=== PATIENT | male | born 1965 | race Caucasian/White ===

== ENCOUNTER 2017-06-30 11:23 | Emergency (ER) | payer SELFPAY ==
[2017-06-30 11:34] VITALS: BP 146/86
--- NOTE | 2017-06-30 14:02 | UC ---
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 Bleeding stopped w/ pressure. Pt is UTD w/ Tetanus shot. Pain is 1/10. He is able to move his thumb w/o any difficulty. Pt denies numbness and tingling over the thumb, SOB, chest pain abdominal pain, N/V/D. - History Of Current Complaint Chief Complaint: UCLaceration Stated Complaint: LACERATION RT THUMB Time Seen by Provider: 06/30/17 13:59 Hx Obtained From: Patient Laceration Location: Finger - RT first phalanx Mechanism Of Injury: Sharp Trauma Onset/Duration: Sudden Onset, Lasting Hours - 4hrs Severity: Moderate Pain Intensity: 1 Pain Scale Used: 0-10 Numeric Aggravating Factors: Movement Related History: Occupational Injury, Dominant Hand Right - Allergies/Home Medications Allergies/Adverse Reactions: Allergies Allergy/AdvReac Type Severity Reaction Status Date / Time No Known Allergies Allergy Verified 06/30/17 11:30 PMH/Surg Hx/FS Hx/Imm Hx Previously Healthy: Yes - Pt denies PMHX - Surgical History Surgical History: Yes Surgery Procedure, Year, and Place: growth removed on R shoulder - Family History Known Family History: Positive: None - Pt denies FMHX - Social History Occupation: Employed Full-time Lives: With Family Alcohol Use: Daily Alcohol Amount: couple beers a day Substance Use Type: None Smoking Status (MU): Heavy Every Day Tobacco Smoker Type: Cigarettes Amount Used/How Often: 1ppd Length of Time of Smoking/Using Tobacco: 30 Years Have You Smoked in the Last Year: Yes Household Exposure Type: Cigarettes - Immunization History Most Recent Tetanus Shot: ~2011 Hx Tetanus, Diphtheria Vaccination: Yes Review of Systems Constitutional: Negative Skin: Other - laceration of the RT Thumb s/p cut w/ a razor blade Eyes: Negative ENT: Negative Respiratory: Negative Cardiovascular: Negative Gastrointestinal: Negative Genitourinary: Negative Motor: Negative Neurovascular: Negative Musculoskeletal: Negative Neurological: Negative Psychological: Negative Is Patient Immunocompromised?: No All Other Systems Reviewed And Are Negative: Yes Physical Exam Triage Information Reviewed: Yes Vital Signs: Initial Vital Signs Temp 98.5 F 06/30/17 11:25 Pulse 86 06/30/17 11:25 Resp 16 06/30/17 11:25 BP 146/86 06/30/17 11:25 Pulse Ox 98 06/30/17 11:25 - Additional Comments Vital Signs Reviewed: Yes General: well developed, well nourished male sitting in the examining table w/o any apparent distress Eye Exam: Normal Eyes: Positive: Conjunctiva Clear - PERRLA, EOMI, fundi grossly normal ENT: Positive: Normal ENT inspection, Hearing grossly normal, Pharynx normal, TMs normal Neck: Positive: Supple, Nontender, No Lymphadenopathy Respiratory: Positive: Chest non-tender, Lungs clear, Normal breath sounds, No respiratory distress Cardiovascular: Positive: RRR, No Murmur, Pulses Normal, Brisk Capillary Refill Abdomen Description: Positive: Nontender, No Organomegaly, Soft. Negative: CVA Tenderness (R), CVA Tenderness (L) Bowel Sounds: Positive: Present Musculoskeletal: Positive: Strength Intact, ROM Intact, No Edema Neurological: Positive: Alert, Muscle Tone Normal Psychological Exam: Normal Skin: Positive:Lateral side of RT First phalanx over the PIPJ w/ a superficial linear laceration about 5.0cm in size, bleeding stopped, non tender to palpation , no swelling, no foreign body . FROM of thumb sensation intact, capillary refill brisk, and pulses WNL. 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 Bleeding stopped w/ pressure. Pt is UTD w/ Tetanus shot. Pain is 1/10. He is able to move his thumb w/o any difficulty. Pt denies numbness and tingling over the thumb, SOB, chest pain abdominal pain, N/V/D. Hx obtained. Pt w/ a superficial laceration on the RT first phalanx about 5cm in size on examination. LACERATION PROCEDURE NOTE: . Copious irrigation was done with saline by the nurse and the wound explored. There was no FB or deep structure injury noted. FROM of RT first phalanx. procedure was explained and consent obtained, Timeout performed. The wound was anesthetized with 4 mL of 1% lido/epi with good anesthesia. Sterile drape and prep were done. There were 14 sutures with 5.0 nylon type of suture. The length of the wound after closure was 5.0cm. No debridement done. Wound was covered bacitracin with sterile non adherent dressing. The Pt tolerated the procedure well without adverse effects. Neurovascular intact and FROM. Pt advised to f/u suture removal in 10- 14 days and if any signs of infection develop to immediately return to the urgent care of PCP for further management and treatment. Pt's BP is elevated today advised to decrease salt in diet, monitor BP and f/u with PCP for further management. Pt understood and agreed and left the clinic ambulating A&Ox3. - Differential Dx - Laceration/Wound Differental Diagnoses: Abrasion, Laceration, Puncture Wound, Tendon Laceration Provider Diagnoses: 1- RT first phalanx laceration repair Discharge - Discharge Plan Condition: Stable Disposition: HOME Prescriptions: Bacitracin OINTMENT* 1 applic TOPICAL TID #1 tube Patient Education Materials: Care For Your Stitches (DC), Laceration (ED), Low- Sodium Diet (ED) Referrals: No Primary Care Phys,NOPCP [Primary Care Provider] - Additional Instructions: 1-Please apply topical antibiotic over the wound. Keep wound clean and dry 2- F/u suture removal in 10-14 days days w/ your PCP or here at the urgent care. 3-Take Ibuprofen or Tylenol PO q6-8hrs prn for pain or swelling. 4- If you develop fever or redness around your finger despite the antibiotic please go to the ER immediately or return to the Urgent care. 5-Your BP is elevated today. please decrease salt in your diet, monitor BP and if it continues to be elevated please f/u with your PCP for further management
[2017-06-30] MEDS ORDERED: Lidocaine 1% MPF* 2 ML VIAL INJ ONE (14:07)
== END 2017-06-30 15:09 | disposition home or self-care (01) ==
LOC: UCCORT 11:23
DX: S61.011A Laceration without foreign body of right thumb without damage to nail, initial encounter (principal); W45.8XXA Other foreign body or object entering through skin, initial encounter; Y93.89 Activity, other specified; Y92.9 Unspecified place or not applicable; F17.210 Nicotine dependence, cigarettes, uncomplicated
CPT/HCPCS: 12002; 99212; G0463

== ENCOUNTER 2018-01-26 09:29 | Emergency (ER) | payer OTHER ==
[2018-01-26 10:04] VITALS: BP 134/82
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
== END 2018-01-26 11:01 | disposition home or self-care (01) ==
LOC: UCCORT 09:29
DX: S16.1XXA Strain of muscle, fascia and tendon at neck level, initial encounter (principal); S40.012A Contusion of left shoulder, initial encounter; V53.5XXA Driver of pick-up truck or van injured in collision with car, pick-up truck or van in traffic accident, initial encounter; Y93.89 Activity, other specified; Y92.410 Unspecified street and highway as the place of occurrence of the external cause; R03.0 Elevated blood-pressure reading, without diagnosis of hypertension; F17.210 Nicotine dependence, cigarettes, uncomplicated
CPT/HCPCS: 72050; 99211; G0463

== ENCOUNTER 2018-10-04 08:30 | Emergency (ER) | payer OTHER ==
[2018-10-04 08:49] VITALS: BP 148/90
[2018-10-04] MEDS ORDERED: Tetan/Diph/Pertus SYR(Tdap)* 0.5 ML SYR(BOOSTRIX) use SYR IM ONE (09:21)
--- NOTE | 2018-10-29 22:22 | UC ---
General HPI - HPI Summary HPI Summary: Patient slipped on ladder and cut his leg on filing cabinet. Applied pressure bandage prior to arrival. No numbness or tingling. Not sure when his last tetanus was. - History of Current Complaint Chief Complaint: UCWounds Stated Complaint: RT LEG LACERATION - W/C Time Seen by Provider: 10/04/18 09:12 Pain Intensity: 6 - Allergy/Home Medications Allergies/Adverse Reactions: Allergies Allergy/AdvReac Type Severity Reaction Status Date / Time No Known Allergies Allergy Verified 10/04/18 08:49 PMH/Surg Hx/FS Hx/Imm Hx Previously Healthy: Yes - Surgical History Surgical History: Yes Surgery Procedure, Year, and Place: growth removed on R shoulder. and left foot - Family History Known Family History: Positive: None - Pt denies FMHX Family History: Noncontributory - Social History Alcohol Use: Daily Alcohol Amount: couple beers a day Substance Use Type: None Smoking Status (MU): Heavy Every Day Tobacco Smoker Type: Cigarettes Amount Used/How Often: 1ppd every other day Length of Time of Smoking/Using Tobacco: 30 Years Have You Smoked in the Last Year: Yes Household Exposure Type: Cigarettes - Immunization History Most Recent Tetanus Shot: ~2011 Hx Tetanus, Diphtheria Vaccination: Yes Review of Systems All Other Systems Reviewed And Are Negative: Yes Physical Exam Triage Information Reviewed: Yes Appearance: Well-Appearing Vital Signs: Initial Vital Signs Temp 99.5 F 10/04/18 08:43 Pulse 71 10/04/18 08:43 Resp 18 10/04/18 08:43 BP 148/90 10/04/18 08:43 Pulse Ox 100 10/04/18 08:43 Vital Signs Reviewed: Yes Skin Exam: Other - large approx 8 cm right lower ext medial upper thigh wound, deep not well approximated with muscle exposed. Course/Dx - Diagnoses Provider Diagnosis: Laceration Discharge - Sign-Out/Discharge Documenting (check all that apply): Patient Departure All imaging exams completed and their final reports reviewed: No Studies - Discharge Plan Condition: Fair Disposition: HOME-RECOMMEND TO ED Patient Education Materials: Laceration (ED) Referrals: No Primary Care Phys,NOPCP [Primary Care Provider] - Additional Instructions: Recommend going directly to ED for laceration repair for deep wound involving muscle layer Laceration has been irrigated and you have received a tetanus booster Follow further instructions per ER staff - Billing Disposition and Condition Condition: FAIR Disposition: Home-Recommend to ED
== END 2018-10-04 09:35 | disposition home health service (06) ==
LOC: UCCORT 08:30
DX: S71.111A Laceration without foreign body, right thigh, initial encounter (principal); W26.8XXA Contact with other sharp object(s), not elsewhere classified, initial encounter; Y92.9 Unspecified place or not applicable; Y99.0 Civilian activity done for income or pay; Z23 Encounter for immunization; F17.210 Nicotine dependence, cigarettes, uncomplicated
CPT/HCPCS: 90715; 99212; G0463

== ENCOUNTER 2018-10-13 12:19 | Emergency (ER) | payer OTHER ==
[2018-10-13 14:24] VITALS: BP 131/91
--- NOTE | 2018-10-13 15:30 | UC ---
HPI Wound/Suture Re-check - HPI Summary HPI Summary: 53 yo male 9 days s/p right inner thigh lac had buried sutures as well a matress sutures no complaints desires sutures removed today as he is leaving for a 3 day weekend tomorrow - History Of Current Complaint Chief Complaint: [facility] Stated Complaint: STITCHES REMOVAL Time Seen by Provider: 10/13/18 14:19 Hx Obtained From: Patient Onset/Duration: Sudden Onset Pain Intensity: 0 Pain Scale Used: 0-10 Numeric - Allergies/Home Medications Allergies/Adverse Reactions: Allergies Allergy/AdvReac Type Severity Reaction Status Date / Time No Known Allergies Allergy Verified 10/04/18 08:49 Home Medications: Home Medications Abx 1 tab PO TID PRN 10/13/18 [History Confirmed 10/13/18] PMH/Surg Hx/FS Hx/Imm Hx Previously Healthy: Yes - Surgical History Surgical History: Yes Surgery Procedure, Year, and Place: growth removed on R shoulder. and left foot - Family History Known Family History: Positive: None - Pt denies FMHX Family History: Noncontributory - Social History Alcohol Use: Daily Alcohol Amount: couple beers a day Substance Use Type: None Smoking Status (MU): Heavy Every Day Tobacco Smoker Type: Cigarettes Amount Used/How Often: 1ppd every other day Length of Time of Smoking/Using Tobacco: 30 Years Have You Smoked in the Last Year: Yes Household Exposure Type: Cigarettes - Immunization History Most Recent Tetanus Shot: ~2011 Hx Tetanus, Diphtheria Vaccination: Yes Review of Systems All Other Systems Reviewed And Are Negative: Yes Constitutional: Positive: Negative Skin: Positive: Negative Eyes: Positive: Negative ENT: Positive: Negative Respiratory: Positive: Negative Cardiovascular: Positive: Negative Gastrointestinal: Positive: Negative Genitourinary: Positive: Negative Motor: Positive: Negative Neurovascular: Positive: Negative Musculoskeletal: Positive: Negative Neurological: Positive: Negative Physical Exam Triage Information Reviewed: Yes Appearance: Well-Appearing, No Pain Distress, Well-Nourished Vital Signs: Initial Vital Signs Temp 98.2 F 10/13/18 14:17 Pulse 83 10/13/18 14:17 Resp 14 10/13/18 14:17 BP 131/91 10/13/18 14:17 Pulse Ox 99 10/13/18 14:17 Vital Signs Reviewed: Yes Eyes: Positive: Conjunctiva Clear ENT: Positive: Hearing grossly normal. Negative: Nasal congestion, Nasal drainage, Trismus, Muffled voice, Hoarse voice Neck: Positive: Supple, Nontender, No Lymphadenopathy Respiratory: Positive: No respiratory distress, No accessory muscle use Cardiovascular: Negative: Tachycardia, Bradycardia Musculoskeletal: Positive: ROM Intact, No Edema Neurological: Positive: Alert Psychological Exam: Normal Skin Exam: Normal Course/Dx - Course Course Of Treatment: sutures remove - Diagnosis Provider Diagnosis: Visit for suture removal Discharge - Sign-Out/Discharge Documenting (check all that apply): Patient Departure All imaging exams completed and their final reports reviewed: No Studies - Discharge Plan Condition: Stable Disposition: HOME Patient Education Materials: Stitches Removal (ED) Referrals: No Primary Care Phys,NOPCP [Primary Care Provider] - Additional Instructions: if the steristrip are still on after a week you may gently remove them call for any questions ...return for any problems - Billing Disposition and Condition Condition: STABLE Disposition: Home
== END 2018-10-13 15:31 | disposition home or self-care (01) ==
LOC: UCCORT 12:19
DX: S71.111D Laceration without foreign body, right thigh, subsequent encounter (principal); W45.8XXD Other foreign body or object entering through skin, subsequent encounter; F17.210 Nicotine dependence, cigarettes, uncomplicated

== ENCOUNTER 2019-07-26 07:40 | Emergency (ER) | payer BC, OTHER ==
[2019-07-26 07:55] VITALS: BP 134/86
--- NOTE | 2019-07-26 08:03 | UC ---
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 He said at the time he got some of it out. But since then it has been very sensitive and feels like there is something still in there. This morning he was able to squeeze some pus out. No fever. Otherwise acting well. Got a tetanus last year. - History of Current Complaint Chief Complaint: [facility]ignBody Stated Complaint: RT HAND-FOREIGN BODY Time Seen by Provider: 07/26/19 07:54 Pain Intensity: 4 - Allergy/Home Medications Allergies/Adverse Reactions: Allergies Allergy/AdvReac Type Severity Reaction Status Date / Time No Known Allergies Allergy Verified 07/26/19 07:52 Home Medications: Home Medications Cephalexin CAP* [Keflex CAP*] 500 mg PO TID #15 cap 07/26/19 [Rx] Sulfamethox/Trimethoprim DS* [Bactrim DS 800/160 TAB*] 2 tab PO BID #20 tab 10/09 [Rx] PMH/Surg Hx/FS Hx/Imm Hx Previously Healthy: Yes - Surgical History Surgical History: Yes Surgery Procedure, Year, and Place: growth removed on R shoulder. and left foot - Family History Known Family History: Positive: None - Pt denies FMHX Family History: Noncontributory - Social History Alcohol Use: Daily Alcohol Amount: couple beers a day Substance Use Type: None Smoking Status (MU): Heavy Every Day Tobacco Smoker Type: Cigarettes Amount Used/How Often: 1 PPD Length of Time of Smoking/Using Tobacco: Since Age 18 Have You Smoked in the Last Year: Yes Household Exposure Type: Cigarettes - Immunization History Most Recent Tetanus Shot: 09/24/18 Hx Tetanus, Diphtheria Vaccination: Yes Review of Systems All Other Systems Reviewed And Are Negative: Yes Physical Exam Triage Information Reviewed: Yes Appearance: Well-Appearing Vital Signs: Initial Vital Signs Temp 98.1 F 07/26/19 07:50 Pulse 79 07/26/19 07:50 Resp 18 07/26/19 07:50 BP 134/86 07/26/19 07:50 Pulse Ox 100 07/26/19 07:50 Eyes: Positive: Conjunctiva Clear Skin Exam: Other - right palmar surface 1 cm cirucular erythematous region with center opening of purulent fluid. Fluctuant. Unable to palpate foreign body. +2 radial pulses Course/Dx - Course Course Of Treatment: This is a 53 yr old with right hand pain Xray to rule out foreign body: No foreign body seen Time out done - Area cleaned with iodine - 2 ml of lidocaine injected into area small laceration with scapel done - unable to express any purulent fluid or foreign body just sanginous fluid Wound Culture sent - no appreciable pus expressed of note Area cleaned and dried and wrapped up. Cellulitis with early abscess, possible small foreign body remains despite negative xray Plan Recommend starting antibiotics as prescribed keep area clean and dry, wash with soap and water warm soaks to area Monitor skin, if area becomes more red and swollen recommend following up with hand specialist for further evaluation - Diagnoses Provider Diagnosis: Cellulitis and abscess of hand Discharge ED - Sign-Out/Discharge Documenting (check all that apply): Patient Departure All imaging exams completed and their final reports reviewed: Yes - Discharge Plan Condition: Good Disposition: HOME Prescriptions: Cephalexin CAP* [Keflex CAP*] 500 mg PO TID #15 cap Sulfamethox/Trimethoprim DS* [Bactrim DS 800/160 TAB*] 2 tab PO BID #20 tab Patient Education Materials: Cellulitis (ED) Referrals: [facility] [Outside] No Primary Care Phys,NOPCP [Primary Care Provider] - Janie Walker MD [Medical Doctor] - Additional Instructions: Recommend starting antibiotics as prescribed keep area clean and dry, wash with soap and water warm soaks to area Monitor skin, if area becomes more red and swollen recommend following up with hand specialist for further evaluation - Billing Disposition and Condition Condition: GOOD Disposition: Home
[2019-07-26] MEDS: Lidocaine 1% MPF ** 5 ML VIAL INJ ONE (08:34)
== END 2019-07-26 09:10 | disposition home or self-care (01) ==
LOC: UCCORT 07:40
DX: L03.113 Cellulitis of right upper limb (principal); L02.511 Cutaneous abscess of right hand; F17.210 Nicotine dependence, cigarettes, uncomplicated
CPT/HCPCS: 10060; 87070; 87077; 87186; 87205; 99212; G0463